=== PATIENT | male | born 1985 | race African-American/Black ===

== ENCOUNTER 2017-05-15 10:40 | Emergency (ER) | payer OTHER ==
[~2017-05-15] VITALS: Ht 182.9 cm; Wt 61.2 kg
[2017-05-15 10:44] VITALS: BP 124/76
== END 2017-05-15 11:43 | disposition home or self-care (01) ==
LOC: ER 10:40
DX: M25.561 Pain in right knee (principal)

== ENCOUNTER 2017-06-03 20:29 | Emergency (ER) | payer OTHER ==
[~2017-06-03] VITALS: Ht 182.9 cm; Wt 61.2 kg
[2017-06-03] MEDS ORDERED: NAPROSYN500 MG PO (21:08)
[2017-06-03 22:30] VITALS: BP 130/88
== END 2017-06-03 22:34 | disposition home or self-care (01) ==
LOC: ER 20:29
DX: S83.91XA Sprain of unspecified site of right knee, initial encounter (principal); W22.8XXA Striking against or struck by other objects, initial encounter; Y93.89 Activity, other specified; Y92.89 Other specified places as the place of occurrence of the external cause; Y99.0 Civilian activity done for income or pay